=== PATIENT | male | born 1970 | race Hispanic/Latino ===

== ENCOUNTER 2019-01-09 12:41 | Emergency (ER) | payer OTHER ==
[2019-01-09] MEDS ORDERED: BISACODYL 5 MG TABLET.DR PO ONE (13:21)
[2019-01-09] MEDS ORDERED: ACETAMINOPHEN EXTRA STRENGTH 500 MG TABLET ONE (13:21)
== END 2019-01-09 14:19 | disposition home or self-care (01) ==
LOC: EEVIPCON 12:41 → EDH 12:41
DX: K64.4 Residual hemorrhoidal skin tags (principal); Z98.890 Other specified postprocedural states